=== PATIENT | female | born 1955 | race Caucasian/White ===

== ENCOUNTER → 2020-09-21 | Outpatient (CLI) | payer OTHER | END | disposition home or self-care (01) | LOC: LAB EV 10:48 → LAB SHORT 10:48 | DX: J02.9 Acute pharyngitis, unspecified (principal) | CPT/HCPCS: 87081 ==

== ENCOUNTER 2022-01-24 08:01 | Day surgery (SDC) | payer OTHER ==
[~2022-01-24] VITALS: Ht 165.1 cm; Wt 83.2 kg
[~2022-01-24 08:01] MED LIST: ATEN50; FLOVENT HFA12 GM; IBUP800; OMEP20ER; RENFLEXIS100 M1
== END 2022-01-24 11:19 | disposition home or self-care (01) ==
LOC: ORSCSDS 08:01
PROVIDERS: Student in an Organized Health Care Education/Training Program
PROC: 0DBP8ZX Excision of Rectum, Via Natural or Artificial Opening Endoscopic, Diagnostic (ICD-10-PCS; principal; 2022-01-24 09:15)
PROC: 0DBN8ZX Excision of Sigmoid Colon, Via Natural or Artificial Opening Endoscopic, Diagnostic (ICD-10-PCS; principal; 2022-01-24 09:15)
PROC: 0DB58ZX Excision of Esophagus, Via Natural or Artificial Opening Endoscopic, Diagnostic (ICD-10-PCS; principal; 2022-01-24 09:15)
PROC: 0DB48ZX Excision of Esophagogastric Junction, Via Natural or Artificial Opening Endoscopic, Diagnostic (ICD-10-PCS; principal; 2022-01-24 09:15)
PROC: 0DBH8ZX Excision of Cecum, Via Natural or Artificial Opening Endoscopic, Diagnostic (ICD-10-PCS; principal; 2022-01-24 09:15)
PROC: 0DBL8ZX Excision of Transverse Colon, Via Natural or Artificial Opening Endoscopic, Diagnostic (ICD-10-PCS; principal; 2022-01-24 09:15)
DX: K21.9 Gastro-esophageal reflux disease without esophagitis (principal); K22.70 Barrett's esophagus without dysplasia; Z12.11 Encounter for screening for malignant neoplasm of colon; Z86.010 Personal history of colon polyps; Z80.0 Family history of malignant neoplasm of digestive organs; I10 Essential (primary) hypertension; E78.5 Hyperlipidemia, unspecified; M06.9 Rheumatoid arthritis, unspecified; Z79.899 Other long term (current) drug therapy
CPT/HCPCS: 88305; 88312; J2704; J7120

== ENCOUNTER 2022-10-10 06:22 | Day surgery (SDC) | payer OTHER ==
[~2022-10-10] VITALS: Ht 167.6 cm; Wt 86.0 kg
[~2022-10-10 06:22] MED LIST changes: +ATEN25 PO; +Acetaminophen650 M1 PO; +Aspir 8181 MG PO; +HYDCHL25 PO; +LIVALO1 MG PO; +MULTI-VITAMIN1 EAC2 PO; -OMEP20ER; +OMEP20ER PO
--- NOTE | 2022-10-10 09:15 | NUR ---
[facility]&O. right wrist soft and nontender. TR band in place no hematoma, no bleeding.
--- NOTE | 2022-10-10 11:02 | NUR ---
removal air from TR band started
--- NOTE | 2022-10-10 11:40 | NUR ---
TR band deflated. site stable.
--- NOTE | 2022-10-10 12:40 | NUR ---
patient verbalized understanding of discharge instructions and precautions. right radial artery site TR band removed succesfully. site soft and nontender, no hematoma, no bleeding. cloth dot placed to site and wrist board placed to right wrist. IV site dced with catheter intact. no further questions. patient transferred to waiting car via wheelchair. mother driving.
== END 2022-10-10 11:45 | disposition home or self-care (01) ==
LOC: MHTC 06:22
DX: I25.10 Atherosclerotic heart disease of native coronary artery without angina pectoris (principal); R07.9 Chest pain, unspecified; R06.09 Other forms of dyspnea; K21.9 Gastro-esophageal reflux disease without esophagitis; N18.31 Chronic kidney disease, stage 3a; I12.9 Hypertensive chronic kidney disease with stage 1 through stage 4 chronic kidney disease, or unspecified chronic kidney disease; Z79.82 Long term (current) use of aspirin; Z88.8 Allergy status to other drugs, medicaments and biological substances; E78.5 Hyperlipidemia, unspecified
CPT/HCPCS: 76937; 93454; 99152; 99153; A9270; C1769; C1887; C1894; J1644; J2250; J3010; J7030; J7040; Q9967

== ENCOUNTER → 2022-11-08 | Outpatient (CLI) | payer OTHER | END | disposition home or self-care (01) | LOC: LAB SHORT 13:48 | DX: R30.9 Painful micturition, unspecified (principal) | CPT/HCPCS: 87077; 87086; 87186 ==

== ENCOUNTER 2023-03-05 08:03 | Day surgery (SDC) | payer OTHER ==
[2023-03-05] VITALS (17 sets, daily range): BP systolic 104–144; BP diastolic 45–69
[~2023-03-05] VITALS: Ht 165.1 cm; Wt 81.4 kg
[~2023-03-05 08:03] MED LIST changes: +GABA300 PO; +MAGNESIUM PO; +PRAV20 PO; +RENFLEXIS100 M1 IV; +VITAMIN D310 MC4 PO
--- NOTE | 2023-03-05 08:35 | NUR ---
Ambulatory in Day Surgery History, Chart, Medications and Allergies reviewed before start of procedure.Lungs clear T/O to Auscultation.Hx-RICHARD wears CPAP 5 @ home. Patient confirms NPO status and agrees with scheduled surgery. Patient reports completing Chlorhexadine shower X2 prior to admission to hospital.Surgical site prepped with 2% Chlorhexidine cloth wipe.
--- NOTE | 2023-03-05 11:38 | NUR ---
03/05/23 1138 Charissa Mora 1GM VANCOMYCIN GIVEN IN PREOP PRIOR TO COMING TO THE OR.
--- NOTE | 2023-03-05 14:44 | NUR ---
PATIENT CAME ON THE UNIT FROM PACU TODAY AT 1415. POD 0 LEFT TKA PATIENT IS A&OX4. VS ARE WNL AND IS ON RA. SHE HAD A SPINAL DURING THE PROCEDURE AND STILL HAS NUMBNESS AND TINGLING FROM THE WAIST DOWN. PEDAL PULSES ARE STRONG AND WARM TO THE TOUCH. HER LEFT KNEE HAS TERRY WRAP THAT IS C/D/I WITH THE POLAR PACK IN PLACE. SHE IS TOLERATING PO INTAKE. PATIENTS MOTHER IS AT BEDSIDE. SHE IS LAYING IN BED WITH CALL LIGHT IN REACH.
--- NOTE | 2023-03-05 16:09 | NUR ---
Spiritual Care Visit. Pt. is awake in bed and welcomes my visit. Pt. is pleasant and a life review is facilitated. Pt. displays evidence of being aware and engaged, and prepared to address her needed Post-Op PT. Rapport is established. Prayed with Pt. Pt. verbalized gratitude for the spiritual care visit, and welcomed this baby registry sales consultant to return tomorrow.
--- NOTE | 2023-03-05 16:22 | NUR ---
SHIFT SUMMARY: POD 0 LEFT TKA PATIENT IS A&OX4. VS ARE WNL AND IS ON RA. PATIENT HAD A SPINAL DURING THE PROCEDURE AND IS STILL NUMB FROM THE WAIST DOWN. PEDAL PULSES ARE STRONG AND WARM TO THE TOUCH. LEFT KNEE HAS AN TERRY WRAP THAT IS C/D/I WITH POLAR PACK IN PLACE. SHE IS TOLERATING PO INTAKE AND STILL AWAITING POST VOID. WILL BLADDER SCAN PRN. PATIENT IS LAYING IN BED WITH CALL LIGHT IN REACH.
[2023-03-06 00:33] VITALS: BP 122/62
[2023-03-06 04:25] VITALS: BP 138/68
[2023-03-06 04:30] LABS: BASOPHILS ABSOLUTE AUTO 0.02 K/mm3 (0.00-0.23); BASOPHILS PERCENT AUTO 0 % (0-2); EOSINOPHILS PERCENT AUTO 0 % (0-6); Hematocrit 31.4 % (33.0-51.0); Hemoglobin 11.1 g/dL (11.5-16.0); IMMATURE GRAN ABSOLUTE AUTO 0.05 K/mm3 (0.00-0.10); IMMATURE GRAN PERCENT AUTO 0 % (0-1); LYMPHOCYTES ABSOLUTE AUTO 1.51 K/mm3 (0.84-5.20); LYMPHOCYTES PERCENT AUTO 10 % (21-46); MONOCYTES ABSOLUTE AUTO 0.71 K/mm3 (0.16-1.47); MONOCYTES PERCENT AUTO 5 % (4-13); Mean Corpuscular HGB 31.7 pg (26.0-34.0); Mean Corpuscular HGB Conc 35.4 g/dL (31.5-36.5); Mean Corpuscular Volume 90 fL (80-100); Mean Platelet Volume 10.6 fL (9.1-12.4); NEUTROPHILS ABSOLUTE AUTO 12.43 K/mm3 (1.96-9.15); NEUTROPHILS PERCENT AUTO 85 % (41-73); Platelet Count 154 K/mm3 (150-400); RDW Coefficient Variation 11.9 % (11.7-14.2); RDW Standard Deviation 38.1 fL (35.1-46.3); White Blood Cell Count 14.72 K/mm3 (4.00-11.30)
[2023-03-06 04:45] LABS: Calcium, Blood 8.3 mg/dL (8.5-10.1); Creatinine, Blood 1.04 mg/dL (0.40-1.00); Magnesium, Blood 1.3 mg/dL (1.6-2.4); Potassium, Blood 3.9 mmol/L (3.5-5.5)
[2023-03-06 07:05] VITALS: BP 127/69
--- NOTE | 2023-03-06 07:16 | NUR ---
POD 1 S/P L TKA. PT VSS T/O NIGHT. DRESSING CDI, BRUISING NOTED ON UPPER THIGH; SOFT TO PALP. PT DENIED N/T, PULSES AND CAP REFILL WNL. PAIN MGD W/5 MG OXYCODONE AND SCHEDULED TYLENOL/TORADOL W/REP RELIEF. PT SILVINO PO, DENIED N/V, IS VOIDING URINE W/O DIFFICULTY. PT AMB W/FWW+SBA, SILVINO WELL. PLAN TO MOBILIZE W/PT AND DC HOME WHEN CLEARED.
[2023-03-06] MEDS ORDERED: OXAYDO5 M1 PO (09:29)
[2023-03-06] MEDS ORDERED: PROM25 PO (09:30)
[2023-03-06] MEDS ORDERED: SULTRIDS PO (09:30)
--- NOTE | 2023-03-06 14:20 | NUR ---
1322 DISCHARGED TO HOME. PT SILVINO PO FOOD AND FLUIDS WITHOUT NAUSEA. 1 PERSON STANDBY ASSIST TO AMBULATE, DENIES DIZZINESS OR LIGHTHEADEDNESS. PT REPORTS PAIN IS O/10. LEFT KNEE DRESSING DRY AND INTACT. PT DENIES ANY NUMBNESS OR TINGLING. VOIDING CLEAR YELLOW URINE
== END 2023-03-06 14:22 | disposition home or self-care (01) ==
LOC: ORSCMMR 08:03 → ORD 11:00 → SURS 13:59 → ORSCMMR 03-06 14:22
PROVIDERS: Orthopaedic Surgery
PROC: 0SRD0J9 Replacement of Left Knee Joint with Synthetic Substitute, Cemented, Open Approach (ICD-10-PCS; principal; 2023-03-05 11:00)
DX: M17.12 Unilateral primary osteoarthritis, left knee (principal); Z96.641 Presence of right artificial hip joint; E78.5 Hyperlipidemia, unspecified; I10 Essential (primary) hypertension; K21.9 Gastro-esophageal reflux disease without esophagitis; Z79.899 Other long term (current) drug therapy
CPT/HCPCS: 36415; 73560-LT; 80048; 83735; 85025; 94760; 97110; 97116; 97161; 97530; A9270; C1713; C1776; J0171; J0690; J0735; J1100; J1885; J2250; J2405; J2704; J2795; J3010; J3370; J3475; J7120

== ENCOUNTER → 2023-09-01 | Outpatient (CLI) | payer OTHER ==
[~2023-09-01] MED LIST changes: +OXAYDO5 M1 PO; +PROM25 PO; +SULTRIDS PO
== END ==
LOC: LAB SHORT 12:58 → LAB 12:58
DX: N39.0 Urinary tract infection, site not specified (principal)
CPT/HCPCS: 87077; 87086; 87186

== ENCOUNTER → 2023-09-19 | Outpatient (CLI) | payer OTHER | LOC: LAB SHORT 16:34 → LAB 16:34 | DX: R30.0 Dysuria (principal) | CPT/HCPCS: 87077; 87086; 87186 ==

== ENCOUNTER → 2023-10-20 | Outpatient (CLI) | payer OTHER | END | disposition home or self-care (01) | LOC: LAB SHORT 13:04 → LAB 13:04 | DX: N39.0 Urinary tract infection, site not specified (principal) | CPT/HCPCS: 87077; 87086; 87186 ==

== ENCOUNTER 2024-11-08 11:51 | Observation (INO) | payer OTHER ==
[~2024-11-08] VITALS: Ht 165.1 cm; Wt 83.7 kg
[2024-11-08] MEDS ORDERED: GABA100 PO (12:21)
[2024-11-08] MEDS ORDERED: LOSA50 PO (12:21)
[2024-11-08] MEDS ORDERED: IBU800 M1 PO (12:22)
[2024-11-08] MEDS ORDERED: FentaNYL Citrate 50 MCG/ML 2 ML Injection IV ONE ×3 (13:00→15:20)
[2024-11-08] MEDS ORDERED: Acetaminophen 500 MG Tab PO ONE (13:00)
[2024-11-08] MEDS ORDERED: PROPOFOL IV SCH (14:20)
[2024-11-08] MEDS ORDERED: Propofol 10mg/ml 20 ml Vial (Procedural) IV SCH ×2 (14:25→16:00)
[2024-11-08] MEDS ORDERED: NS 1,000 ML IV ONE (14:33)
[2024-11-08] MEDS ORDERED: FentaNYL Citrate 50 MCG/ML 2 ML Injection ONE ×2 (15:00→15:15)
[2024-11-08] MEDS ORDERED: NS 1,000 ML IV SCH ×2 (16:00→23:30)
[2024-11-08] MEDS ORDERED: Ondansetron HCl 2 MG / ML 2ML Vial IV PRN (17:40)
[2024-11-08] MEDS ORDERED: Metoclopramide HCl 5MG / ML 2ML Vial IV PRN (17:40)
[2024-11-08] MEDS ORDERED: FLU VACC TS2024-25(6MOS UP)/PF 45 MCG/0.5 ML SYRINGE IM ONE (17:40)
[2024-11-08] MEDS ORDERED: OxyCODONE 5 mg/Acetamin 325 mg TABLET PO PRN (17:45)
[2024-11-08] MEDS ORDERED: FentaNYL Citrate 50 MCG/ML 2 ML Injection IV PRN (17:45)
[2024-11-08] MEDS ORDERED: Docusate Sodium 100 MG Cap PO SCH (21:00)
[2024-11-08] MEDS ORDERED: Losartan Potassium 50 MG Tab PO SCH (21:00)
[2024-11-08] MEDS ORDERED: Sennosides 8.6 MG Tab PO SCH (21:00)
[2024-11-08] MEDS ORDERED: Gabapentin 100 MG Cap PO SCH (21:00)
[2024-11-09] VITALS (14 sets, daily range): BP systolic 136–176; BP diastolic 65–94
--- NOTE | 2024-11-09 01:07 | NUR ---
ARRIVAL PT NEW ADMIT FROM ER. ARRIVED VIA DARLING, ON RA. REPORTING 15/[address] RLE IS INTERNALLY ROTATED AND SHORTENED. STRONG PULSE AND CAP REFILL WNL. PT MEDICATED PER EMAR, SURGICAL [place] COMPLETE. PT TO BE NPO IN PREP FOR OR IN THE MORNING.
[2024-11-09] MEDS ORDERED: Omeprazole 20 MG CapCR PO SCH (06:00)
--- NOTE | 2024-11-09 06:08 | NUR ---
SHIFT SUMMARY VSS. PT HAS SLEPT ON AND OFF T/O THE NIGHT. MEDICATED FOR PAIN W/ PRN'S W/ GOOD RESULTS. RLE MAINTAINS <3 SEC CAP REFILL AND SENSATION. SHORTENED AND INTERNALLY ROTATED. PT CAN MOVE TOES ON COMMAND. VOIDING W/O DIFFICULTY INTO PUREWICK. HAS BEEN NPO SINCE 0000 IN ANTICIPATION FOR REDUCTION OF HER R HIP TODAY. THE PATIENT IS CURRENTLY RESTING, IN NO DISTRESS, CALL LIGHT IN REACH.
--- NOTE | 2024-11-09 11:34 | NUR ---
TO DAY SURGERY VIA HOSPITAL BED
[2024-11-09] MEDS ORDERED: Lactated Ringer's 1,000 ML IV SCH (11:40)
--- NOTE | 2024-11-09 11:40 | NUR ---
PT HAS 22G IV TO LEFT HAND THAT FLUSHES WELL. WILL ATTEMPT 20G OR BETTER PRIOR TO ROLL BACK TO OR.
--- NOTE | 2024-11-09 11:47 | NUR ---
PT BROUGHT FROM FLOOR TO DAY SURGERY FOR PROCEDURE. History, Chart, Medications and Allergies reviewed before start of procedure. Lungs clear T/O to Auscultation. Patient confirms NPO status and agrees with scheduled surgery. Pre-Op teaching done. Pt verbalizes understanding. PT BELONGINGS LEFT IN PERSONAL ROOM ON SURGICAL FLOOR.
[2024-11-09] MEDS ORDERED: Rocuronium Bromide 10 MG/ML 5ML Injection IV ONE (12:30)
[2024-11-09] MEDS ORDERED: propofoL 20 ML IV ONE (12:30)
[2024-11-09] MEDS ORDERED: FentaNYL Citrate 50 MCG/ML 2 ML Injection ONE (12:45)
[2024-11-09] MEDS ORDERED: Sugammadex Sodium 200 MG/2ML SDV (100 MG/ML) ONE (12:45)
[2024-11-09] MEDS ORDERED: Lidocaine HCl 2% 20 ML MDV ONE (12:47)
--- NOTE | 2024-11-09 13:45 | NUR ---
POST OP RETURN TO SURGICAL UNIT ALERT, ORIENTED, PLEASANT. R KNEE IN IMMOBILIZER. PPP. NO BRUISING NOTED TO R HIP. LUNGS CLEAR. DENIES PAIN OR N/V. SNACKS GIVEN.
--- NOTE | 2024-11-09 18:30 | NUR ---
SUMMARY PT A&OX4, VSS/RA, SILVINO PO, VOIDING, DENIES PAIN, IMMOBILIZER ON LLE, AMB FWW/GB SBA, UP TO CHAIR, PHYSICAL THERAPY EVAL'D REC HOME/HH, DC INS PROVIDED, IVS DC'D, LEFT VIA WC WITH STOCKROOM CLERK WITH ALL PERSONAL POSSESSIONS TO GO HOME WITH BROTHER.
== END 2024-11-09 18:52 | disposition home or self-care (01) ==
LOC: ER 11:51 → SURS 11:52 → ERHOLD 11:52 → SURS 23:30
PROVIDERS: Orthopaedic Surgery; ADMIT Student in an Organized Health Care Education/Training Program
PROC: 0SW9XJZ Revision of Synthetic Substitute in Right Hip Joint, External Approach (ICD-10-PCS; principal; 2024-11-09 12:30)
DX: T84.020A Dislocation of internal right hip prosthesis, initial encounter (principal); M06.9 Rheumatoid arthritis, unspecified; I10 Essential (primary) hypertension; E78.5 Hyperlipidemia, unspecified; K21.9 Gastro-esophageal reflux disease without esophagitis; Z79.899 Other long term (current) drug therapy; Z88.8 Allergy status to other drugs, medicaments and biological substances; Z90.49 Acquired absence of other specified parts of digestive tract
CPT/HCPCS: 27265; 73501; 96374-59; 97110; 97116; 97161; 97530; 99152; 99153; 99284-25; A9270; G0378; J2704; J3010; J7030; J7120

== ENCOUNTER → 2025-02-08 | Outpatient (CLI) | payer OTHER ==
[~2025-02-08] MED LIST changes: +GABA100 PO; +IBU800 M1 PO; +LOSA50 PO
== END | disposition home or self-care (01) ==
LOC: LAB SHORT 10:03 → LAB 10:03
DX: J10.1 Influenza due to other identified influenza virus with other respiratory manifestations (principal); R05.9 Cough, unspecified
CPT/HCPCS: 87070; 87205